=== PATIENT | female | born 1960 | race Caucasian/White ===

== ENCOUNTER → 2018-08-02 10:06 | Outpatient (CLI) | payer OTHER, SELFPAY ==
--- NOTE | 2018-08-02 | DI.RAD.S_ITS ---
PROCEDURE: XR CERVICAL SPINE 4V OR 5V INDICATIONS: PAIN IN NECK TECHNIQUE: 4 views of the cervical spine acquired. COMPARISON: None. FINDINGS: Bones: No fractures or dislocations to the C7-T1 level. Mild degenerative endplate changes are noted at C5-6 and C6-7 levels. Oblique images demonstrate no significant bony foraminal stenoses. Soft tissues: No prevertebral soft tissue swelling. IMPRESSION: Degenerative disc disease in lower cervical spine. No compression fracture or spondylolisthesis. No significant neural foramina narrowing. Dictated by: Mark Escobedo M.D. on 08/02/2018 at 11:38 Approved by: Mark Escobedo M.D. on 08/02/2018 at 11:40
--- NOTE | 2018-08-02 | DI.RAD.S_ITS ---
PROCEDURE: XR SHOULDER RT 1V INDICATIONS: PAIN IN SHOULDER TECHNIQUE: 3 views of the shoulder were acquired. COMPARISON: [facility], , SHOULDER MINIMUM 2VIEW RIGHT, 06/22/2017, 10:00. FINDINGS: Bones: No fractures or dislocations. No suspicious bony lesions. Visualized ribs appear intact. Mild acromioclavicular joint and glenohumeral joint space narrowing is seen. Soft tissues: No suspicious soft tissue calcifications. IMPRESSION: Mild acromioclavicular joint and glenohumeral joint osteoarthritis. No fracture or dislocation. Dictated by: Mark Escobedo M.D. on 08/02/2018 at 11:40 Approved by: Mark Escobedo M.D. on 08/02/2018 at 11:57
== END ==
PROVIDERS: Family Provider Family Medicine; PCP Family Medicine; Visit Provider Family Medicine
DX: M25.511 Pain in right shoulder (principal); M50.322 Other cervical disc degeneration at C5-C6 level; M19.011 Primary osteoarthritis, right shoulder
CPT/HCPCS: 72050; 73030

== ENCOUNTER → 2018-10-24 09:41 | Outpatient (CLI) | payer OTHER, SELFPAY ==
--- NOTE | 2018-10-24 | DI.US.S_ITS ---
PROCEDURE: US THYROID INDICATIONS: HYPOTHYROID, HIP AND BACK PAIN TECHNIQUE: Real-time scanning was performed of the thyroid gland, with image documentation. COMPARISON: None. FINDINGS: Right: Thyroid lobe measures 5.3 x 1.3 x 1.1 cm, and is homogeneous in echotexture. Left: Thyroid lobe measures 4.4 x 1.0 x 1.0 cm, and is homogenous in echotexture. Isthmus: 3.0 mm thick. IMPRESSION: Normal thyroid. Dictated by: Abel SANTAMARIA Interpreted: Vikas Zhong MD on 10/24/2018 at 14:18 Approved by: Vikas Zhong M.D. on 10/24/2018 at 14:47
--- NOTE | 2018-10-24 | DI.RAD.S_ITS ---
PROCEDURE: XR HIP W PEL IF DONE RT 2V INDICATIONS: HYPOTHYROID, HIP AND BACK PAIN TECHNIQUE: AP pelvis with lateral view(s) of the right hip(s). COMPARISON: [facility], , -SPINE 2-3 VIEWS, 02/21/2016, 10:05. FINDINGS: Bones: No fractures or dislocations. Pelvic ring appears intact. No suspicious bony lesions. There is mild measured a consideration. Moderate bilateral facet arthropathy is noted at L5-S1. Soft tissues: The visualized bowel gas pattern is normal. No suspicious soft tissue calcifications. IMPRESSION: 1. Mild symmetric hip joint osteoarthritis. 2. Moderate bilateral facet arthropathy. Dictated by: Be Gonzalez M.D. on 10/24/2018 at 15:53 Approved by: Be Gonzalez M.D. on 10/24/2018 at 15:57
--- NOTE | 2018-10-24 | DI.RAD.S_ITS ---
PROCEDURE: XR LUMBAR SPINE 2-3V INDICATIONS: HYPOTHYROID, HIP AND BACK PAIN TECHNIQUE: 2 views of the lumbar spine were acquired. COMPARISON: [facility], CR, L-SPINE 2-3 VIEWS, 02/21/2016, 10:05. [facility], MR, L-SPINE WITHOUT CONTRAST, 05/26/2016, 12:52. FINDINGS: Bones: 5 [id number] vertebrae are present. There is grade 1 anterolisthesis of L5-S1. No vertebral body compression fractures. No suspicious bony lesions. There is mild degenerative disease at L3-L4 and L4-L5. There is severe facet arthropathy at L4-L5 and L5-S1. Soft tissues: Overlying bowel gas pattern is normal. Aortic calcifications consistent with atherosclerosis. IMPRESSION: 1. Mild degenerative disc disease. 2. Severe facet arthropathy. Dictated by: Be Gonzalez M.D. on 10/24/2018 at 14:29 Approved by: Be Gonzalez M.D. on 10/24/2018 at 14:31
== END ==
PROVIDERS: Family Provider Family Medicine; PCP Family Medicine; Visit Provider Family Medicine
DX: M54.5 Low back pain (principal); E03.9 Hypothyroidism, unspecified; M25.551 Pain in right hip; M51.36 Other intervertebral disc degeneration, lumbar region; M47.816 Spondylosis without myelopathy or radiculopathy, lumbar region; M47.817 Spondylosis without myelopathy or radiculopathy, lumbosacral region; M16.11 Unilateral primary osteoarthritis, right hip
CPT/HCPCS: 72100; 73502; 76536

== ENCOUNTER → 2019-04-10 09:47 | Outpatient (CLI) | payer OTHER, SELFPAY ==
--- NOTE | 2019-04-10 | DI.MRI.S_ITS ---
PROCEDURE: MR LUMBAR SPINE WO CON INDICATIONS: Panniculitis affecting regions of neck and back, t TECHNIQUE: Noncontrast sagittal T1 spin echo and T2 fast echo, sagittal STIR, axial T1 and T2 fast spin echo through the lumbar spine. In cases with scoliosis, additional coronal T2 fast spin echo may be performed. COMPARISON: [facility], MR, L-SPINE WITHOUT CONTRAST, 05/26/2016, 12:52. FINDINGS: Image quality: Excellent. Alignment and Curvature: Trace anterolisthesis of L5 on S1 Bone Marrow: No acute fracture. Scattered degenerative subchondral sclerosis and spurring. Status post L4-L5 level posterior decompression Spinal Cord: Conus medullaris terminates at the L1 level. Visualized cord demonstrates normal signal and size. Paraspinous Soft Tissues: No paravertebral masses. There is nonspecific, dependent posterior subcutaneous soft tissue edema from level of L1-L3 L1-L2: Normal appearance. L2-L3: Moderate canal narrowing in part due to dorsal epidural lipomatosis. This appears grossly unchanged. L3-L4: No canal stenosis. Lateral recesses appear patent. No high-grade foraminal stenosis. No interval change. L4-L5: No canal stenosis. No lateral recess narrowing. Minimal bilateral foraminal narrowing although unchanged. L5-S1: No canal or foraminal stenosis. IMPRESSION: Status post posterior decompression at L4-L5. No residual high-grade canal stenosis. Trace anterolisthesis of L5 on S1. Dictated by: Hank Storey M.D. on 04/10/2019 at 13:44 Approved by: Hank Storey M.D. on 04/10/2019 at 13:51
== END ==
PROVIDERS: Family Provider Family Medicine; PCP Family Medicine; Visit Provider Orthopaedic Surgery Orthopaedic Surgery of the Spine
DX: M54.05 Panniculitis affecting regions of neck and back, thoracolumbar region (principal)
CPT/HCPCS: 72148

== ENCOUNTER → 2019-05-25 16:24 | Outpatient (CLI) | payer OTHER, SELFPAY ==
--- NOTE | 2019-05-25 | DI.RAD.S_ITS ---
PROCEDURE: XR KNEE LT 3V INDICATIONS: left knee pain TECHNIQUE: 3 views of the knee were acquired. COMPARISON: [facility], MR, KNEE WITHOUT CONTRAST, 11/23/2017, 9:58. [facility], MR, KNEE WITHOUT CONTRAST, 05/13/2015, 17:39. [facility], CR, KNEE 3V LEFT, 10/19/2017, 10:39. FINDINGS: Bones: No fractures or dislocations. No suspicious bony lesions. The femorotibial joint spaces appear well-preserved. On the sunrise view, there is moderate patellofemoral joint space narrowing seen. Osteophyte formation can be seen along the margins of the patella. Soft tissues: No joint effusion. No suspicious soft tissue calcifications. Atherosclerotic calcification is noted. IMPRESSION: Focal patellofemoral joint degenerative change. Dictated by: Pro Braswell M.D. on 05/25/2019 at 16:11 Approved by: Pro Braswell M.D. on 05/25/2019 at 16:12
== END ==
PROVIDERS: PCP Family Medicine; Visit Provider Family Medicine
DX: M25.562 Pain in left knee (principal); M25.762 Osteophyte, left knee
CPT/HCPCS: 73562

== ENCOUNTER → 2019-06-16 16:38 | Outpatient (CLI) | payer OTHER, SELFPAY ==
--- NOTE | 2019-06-16 | DI.RAD.S_ITS ---
PROCEDURE: XR THORACIC SPINE 3V INDICATIONS: Pain in thoracic spine TECHNIQUE: 3 views of the thoracic spine were acquired. COMPARISON: [facility], MR, T-SPINE WITHOUT CONTRAST, 12/26/2016, 18:20. [facility], CR, XR LUMBAR SPINE 2-3V, 10/24/2018, 9:54. FINDINGS: Bones: No fractures or dislocations. No suspicious bony lesions. 12 pairs of ribs are noted, and appear intact where visualized. Mild degenerative disc disease scattered in upper to mid thoracic spine.. Soft tissues: No paravertebral stripe thickening. IMPRESSION: Mild degenerative disc disease. Dictated by: Be Gonzalez M.D. on 06/16/2019 at 18:33 Approved by: Be Gonzalez M.D. on 06/16/2019 at 18:35
== END ==
PROVIDERS: PCP Family Medicine; Visit Provider Family Medicine
DX: M51.34 Other intervertebral disc degeneration, thoracic region (principal)
CPT/HCPCS: 72072

== ENCOUNTER → 2019-06-19 12:11 | Outpatient (CLI) | payer OTHER, SELFPAY ==
--- NOTE | 2019-06-19 | DI.RAD.S_ITS ---
PROCEDURE: XR LUMBAR SPINE MIN 4V INDICATIONS: Spinal stenosis, lumbar region without neurogenic TECHNIQUE: 5 views of the lumbar spine acquired. COMPARISON: [facility], CR, XR LUMBAR SPINE 2-3V, 10/24/2018, 9:54. FINDINGS: Bones: No fracture or focal osseous destruction. Multilevel degenerative endplate sclerosis and spurring. Diffuse facet arthropathy. Grade 1 anterolisthesis of L4 on L5. Moderate to severe narrowing of the L5-S1 disc space. Diffuse mild narrowing of the remaining lumbar disc spaces. No evidence of abnormal motion with dynamic flexion and extension lateral views. Soft tissues: Scattered vascular calcifications seen in the aorta. IMPRESSION: Multilevel lumbar spondylosis, most pronounced at L5-S1. No interval change Grade 1 anterolisthesis of L4-L5. No evidence of abnormal motion with dynamic flexion and extension lateral views. Dictated by: Hank Storey M.D. on 06/19/2019 at 17:08 Approved by: Hank Storey M.D. on 06/19/2019 at 17:11
== END ==
PROVIDERS: PCP Family Medicine; Visit Provider Orthopaedic Surgery Orthopaedic Surgery of the Spine
DX: M48.061 Spinal stenosis, lumbar region without neurogenic claudication (principal); M47.817 Spondylosis without myelopathy or radiculopathy, lumbosacral region; M43.16 Spondylolisthesis, lumbar region
CPT/HCPCS: 72110

== ENCOUNTER → 2020-08-21 09:23 | Outpatient (CLI) | payer OTHER, SELFPAY ==
[2020-08-21 10:52] LABS: COVID19 -Nasal RAPID Negative (Negative)
== END ==
PROVIDERS: PCP Family Medicine; Visit Provider Nurse Practitioner
DX: H92.09 Otalgia, unspecified ear (principal); J02.9 Acute pharyngitis, unspecified; J98.8 Other specified respiratory disorders; R05 Cough
CPT/HCPCS: 87635

== ENCOUNTER → 2020-11-21 16:01 | Outpatient (CLI) | payer OTHER, SELFPAY ==
--- NOTE | 2020-11-21 16:03 | DI.RAD.S_ITS ---
PROCEDURE: XR CERVICAL SPINE 2V OR 3V INDICATIONS: M54.5, M54.2 TECHNIQUE: 3 view(s) of the cervical spine were acquired. COMPARISON: [facility], CR, XR CERVICAL SPINE 4V OR 5V, 08/02/2018, 10:29. FINDINGS: Bones: No fracture. Multilevel degenerative endplate sclerosis and spurring. Diffuse facet arthropathy. Joint spaces grossly preserved. Soft tissues: No prevertebral soft tissue swelling. IMPRESSION: Mild cervical spondylitic changes and diffuse facet arthropathy. No interval change Dictated by: Hank Storey M.D. on 11/21/2020 at 22:11 Approved by: Hank Storey M.D. on 11/21/2020 at 22:12
--- NOTE | 2020-11-21 16:03 | DI.RAD.S_ITS ---
PROCEDURE: XR THORACIC SPINE 2V INDICATIONS: A TECHNIQUE: 3 views of the thoracic spine were acquired. COMPARISON: [facility], CR, XR THORACIC SPINE 3V, 06/16/2019, 16:42. FINDINGS: Bones: No fracture. Multilevel degenerative endplate sclerosis and spurring. Diffuse facet arthropathy. Disc spaces preserved Soft tissues: No paravertebral stripe thickening. IMPRESSION: Mild discogenic changes. No interval change Dictated by: Hank Storey M.D. on 11/21/2020 at 22:14 Approved by: Hank Storey M.D. on 11/21/2020 at 22:15
--- NOTE | 2020-11-21 16:03 | DI.RAD.S_ITS ---
PROCEDURE: XR LUMBAR SPINE 2-3V INDICATIONS: M54.5, M54.2 TECHNIQUE: 3 views of the lumbar spine were acquired. COMPARISON: [facility], , XR LUMBAR SPINE MIN 4V, 06/19/2019, 12:56. FINDINGS: Bones: No fracture Multilevel degenerative endplate sclerosis and spurring. Diffuse facet arthropathy. Mild right hip degenerative joint disease. Trace anterolisthesis of L4 on L5 and grade 1 anterolisthesis of L5 on S1. Soft tissues: Scattered vascular calcifications in the aorta IMPRESSION: Lower lumbar spondylosis and diffuse facet arthropathy, grossly unchanged since 06/19/19 Dictated by: Hank Storey M.D. on 11/21/2020 at 22:12 Approved by: Hank Storey M.D. on 11/21/2020 at 22:13
== END ==
PROVIDERS: PCP Family Medicine; Referring Provider Family Medicine; Visit Provider Family Medicine
DX: M54.2 Cervicalgia (principal); M47.812 Spondylosis without myelopathy or radiculopathy, cervical region; M54.5 Low back pain; M47.816 Spondylosis without myelopathy or radiculopathy, lumbar region; M16.0 Bilateral primary osteoarthritis of hip; M43.17 Spondylolisthesis, lumbosacral region
CPT/HCPCS: 72040; 72070; 72100

== ENCOUNTER → 2021-03-13 14:30 | Outpatient (CLI) | payer OTHER, SELFPAY ==
--- NOTE | 2021-03-13 14:32 | DI.RAD.S_ITS ---
PROCEDURE: XR ANKLE LT MIN 3V INDICATIONS: PAIN TECHNIQUE: 3 views of the ankle were acquired. COMPARISON: None. FINDINGS: Bones: No fractures or dislocations. Ankle mortise is normally aligned. No suspicious bony lesions. Age-appropriate bony degenerative changes are seen. Plantar and Achilles calcaneal spurs are seen. The talar dome demonstrates no erasmo abnormality. Soft tissues: No tibiotalar joint effusion. Achilles tendon appears normal. IMPRESSION: Ankle plain film series within normal limits. Dictated by: Pro Braswell M.D. on 03/13/2021 at 14:22 Approved by: Pro Braswell M.D. on 03/13/2021 at 14:22
== END ==
PROVIDERS: PCP Family Medicine; Referring Provider Family Medicine; Visit Provider Family Medicine
DX: M25.572 Pain in left ankle and joints of left foot (principal); M77.32 Calcaneal spur, left foot
CPT/HCPCS: 73610

== ENCOUNTER → 2021-04-23 10:10 | Outpatient (CLI) | payer OTHER, SELFPAY ==
--- NOTE | 2021-04-23 | DI.MRI.S_ITS ---
PROCEDURE: MR LUMBAR SPINE WO CON INDICATIONS: Spinal stenosis, lumbar region without neurogenic TECHNIQUE: Noncontrast sagittal T1 spin echo and T2 fast echo, sagittal STIR, axial T1 and T2 fast spin echo through the lumbar spine. In cases with scoliosis, additional coronal T2 fast spin echo may be performed. COMPARISON: [facility], CT, L-SPINE WITHOUT CONTRAST, 07/27/2016, 13:02. [facility], MR, MR LUMBAR SPINE WO CON, 04/10/2019, 10:09. [facility], CR, XR LUMBAR SPINE 2-3V, 11/21/2020, 16:09. FINDINGS: Image quality: Excellent. Alignment and Curvature: Remote L4 through S1 laminectomy. Stable anterolisthesis of L5 on S1 measuring approximately 6 mm. The other vertebral bodies are normally aligned. Bone Marrow: Marrow is of normal overall signal. No acute vertebral body compression fractures. Spinal Cord: Conus medullaris terminates at the L1 level. Visualized cord demonstrates normal signal and size. Paraspinous Soft Tissues: No paravertebral masses. T11-T12: No canal stenosis or foraminal stenosis. T12-L1: No canal stenosis or foraminal stenosis. L1-L2: No canal stenosis or foraminal stenosis. L2-L3: Interval increase in diffuse disc bulge, slightly eccentric to the right. Mild facet hypertrophy. Mild canal stenosis. No significant foraminal stenosis. L3-L4: Unchanged. Disc bulge. Posterior laminectomy. No canal stenosis. Bilateral facet hypertrophy. No foraminal stenosis. L4-L5: Unchanged. Posterior laminectomy. No canal stenosis. Bilateral facet hypertrophy. Mild right foraminal narrowing. L5-S1: Facet hypertrophy. Posterior laminectomy. Mild canal stenosis. IMPRESSION: 1. Remote L4 through S1 laminectomy. 2. Mild canal stenosis at L2-L3. 3. Mild canal stenosis at L5-S1. This is best seen on the sagittal images. 4. Multilevel facet arthropathy. Dictated by: Gee Doyle M.D. on 04/23/2021 at 21:00 Approved by: Gee Doyle M.D. on 04/23/2021 at 21:11
== END ==
PROVIDERS: PCP Family Medicine; Referring Provider Orthopaedic Surgery Orthopaedic Surgery of the Spine; Visit Provider Orthopaedic Surgery Orthopaedic Surgery of the Spine
DX: M48.061 Spinal stenosis, lumbar region without neurogenic claudication (principal); M47.816 Spondylosis without myelopathy or radiculopathy, lumbar region
CPT/HCPCS: 72148

== ENCOUNTER → 2021-08-03 16:51 | Outpatient (CLI) | payer OTHER, SELFPAY ==
--- NOTE | 2021-08-03 | DI.RAD.S_ITS ---
PROCEDURE: XR KNEE LT 3V INDICATIONS: pain TECHNIQUE: 3 views of the knee were acquired. COMPARISON: [facility], CR, XR KNEE LT 3V, 05/25/2019, 16:34. FINDINGS: Bones: No fractures or dislocations. No suspicious bony lesions. Superior patellar enthesophyte. Minimal tricompartmental osteophytosis. Soft tissues: No joint effusion. No suspicious soft tissue calcifications. IMPRESSION: No significant abnormality. Dictated by: Charlie Hernandez M.D. on 08/04/2021 at 9:46 Approved by: Charlie Hernandez M.D. on 08/04/2021 at 9:49
== END ==
PROVIDERS: PCP Family Medicine; Referring Provider Family Medicine; Visit Provider Family Medicine
DX: M25.562 Pain in left knee (principal)
CPT/HCPCS: 73562

== ENCOUNTER → 2021-08-10 11:45 | Outpatient (CLI) | payer OTHER, SELFPAY ==
--- NOTE | 2021-08-10 11:46 | DI.MRI.S_ITS ---
PROCEDURE: MR KNEE LT WO CON INDICATIONS: CHECK FOR MINISCUS TECHNIQUE: Noncontrast sagittal PD fast spin echo and T2 fast spin echo with fat saturation, sagittal 3-D FLASH with fat saturation; coronal T1 spin echo and PD fast spin echo with fat saturation, and axial PD fast spin echo with fat saturation through the knee. COMPARISON: [facility], MR, KNEE WITHOUT CONTRAST, 11/23/2017, 9:58. FINDINGS: Image quality: Excellent. Menisci: The lateral meniscus is intact. Surfacing signal in the posterior horn, medial meniscus, compatible with meniscal tear (7-10). Mild extrusion of the medial meniscus. The meniscal root ligaments appear intact. Cruciate ligaments: The anterior and posterior cruciate ligaments appear intact. Medial structures: The medial collateral ligament appears intact. The visualized portions of the pes anserinus tendons appear normal. No abnormal bursal fluid. Lateral structures: The lateral collateral ligament complex appears intact. The popliteus tendon appears normal. The iliotibial band appears normal. Anterior structures: The quadriceps and patellar tendons appear intact. Patellar alignment is normal. No femoral trochlear dysplasia or ventral trochlear prominence. No edema in the infrapatellar fat pad. Bones and cartilage: No bone marrow contusions or fractures. Signal heterogeneity of the lateral patellar facet hyaline cartilage with preservation of the thickness. Signal heterogeneity with slight contour irregularity of the medial femoral condyle hyaline cartilage. Signal heterogeneity and thinning of the lateral compartment hyaline cartilage. Joint space: Small knee joint fluid. Trace Freeman's cyst. IMPRESSION: 1. Medial meniscal tear as detailed above. 2. Lateral patellar facet chondromalacia. 3. Small suprapatellar joint effusion. Dictated by: Charlie Hernandez M.D. on 08/10/2021 at 13:17 Approved by: Charlie Hernandez M.D. on 08/10/2021 at 13:22
== END ==
PROVIDERS: PCP Family Medicine; Referring Provider Family Medicine; Visit Provider Family Medicine
DX: S83.242A Other tear of medial meniscus, current injury, left knee, initial encounter (principal); M22.42 Chondromalacia patellae, left knee; M25.462 Effusion, left knee; M25.562 Pain in left knee
CPT/HCPCS: 73721

== ENCOUNTER → 2021-12-02 10:44 | Outpatient (CLI) | payer OTHER, SELFPAY ==
--- NOTE | 2021-12-02 10:48 | DI.MG.S_ITS ---
BILATERAL DIGITAL SCREENING MAMMOGRAM 3D/2D WITH CAD: 12/02/2021 CLINICAL: Routine screening. Comparison is made to exams dated: 10/07/2018 mammogram, 06/20/2016 mammogram, 11/03/2015 mammogram, 11/03/2015 ultrasound, and 10/28/2015 mammogram - outside. There are scattered fibroglandular elements in both breasts. Current study was also evaluated with a Computer Aided Detection (CAD) system. There is a possible new 0.5 cm irregular equal density asymmetry in the right breast posterior depth lateral region seen on the craniocaudal view only. No other significant masses, calcifications, or other findings are seen in either breast. IMPRESSION: INCOMPLETE: NEEDS ADDITIONAL IMAGING EVALUATION The possible new 0.5 cm irregular equal density asymmetry in the right breast is indeterminate. Additional views with possible ultrasound are recommended. This exam was interpreted at Station ID: [id number]. NOTE: For mammograms, a report in lay terms will be sent to the patient. Approximately 15% of breast malignancies will not be visualized mammographically. In the management of a palpable breast mass, a negative mammogram must not discourage biopsy of a clinically suspicious lesion. Electronically Signed By: Vikas ocampo/max:12/02/2021 13:17:34 letter sent: Additional Imaging Needed ACR BI-RADS Category 0: Incomplete [id number]
== END ==
PROVIDERS: PCP Family Medicine; Referring Provider Family Medicine; Visit Provider Family Medicine
DX: Z12.31 Encounter for screening mammogram for malignant neoplasm of breast (principal)
CPT/HCPCS: 77063; 77067

== ENCOUNTER → 2022-01-20 12:05 | Outpatient (CLI) | payer OTHER, SELFPAY ==
--- NOTE | 2022-01-20 | DI.MG.S_ITS ---
UNILATERAL RIGHT DIGITAL DIAGNOSTIC MAMMOGRAM 3D/2D WITH ADDITIONAL VIEWS: 01/20/2022 CLINICAL: Additional evaluation requested from prior study. Comparison is made to exams dated: 12/02/2021 mammogram - [facility], 10/07/2018 mammogram, and 06/20/2016 mammogram - outside. There are scattered fibroglandular elements in right breast. The 0.5 cm irregular equal density asymmetry in the right breast posterior depth central to the nipple seen on the craniocaudal view only is no longer seen. This is seen in additional views. No other significant masses or calcifications are seen in the breast. IMPRESSION: INCOMPLETE: NEEDS ADDITIONAL IMAGING EVALUATION Asymmetry in the right breast is not significantly changed from recent screening mammogram, and appears new when compared with 2019 study. An ultrasound is recommended and has been scheduled to immediately follow. This exam was interpreted at Station ID: [id number]. NOTE: For mammograms, a report in lay terms will be sent to the patient. Approximately 15% of breast malignancies will not be visualized mammographically. In the management of a palpable breast mass, a negative mammogram must not discourage biopsy of a clinically suspicious lesion. Electronically Signed By: Kemar Jim M.D. jr/:01/20/2022 12:40:29 ACR BI-RADS Category 0: Incomplete [id number]
--- NOTE | 2022-01-20 | DI.US.S_ITS ---
LIMITED ULTRASOUND OF RIGHT BREAST: 01/20/2022 CLINICAL: Patient returns today to evaluate an asymmetry in the right breast. Comparison is made to exams dated: 01/20/2022 mammogram, 12/02/2021 mammogram - [facility], 10/07/2018 mammogram, 06/20/2016 mammogram, 11/03/2015 mammogram, and 11/03/2015 ultrasound - outside. Color flow and real-time ultrasound of the right breast were performed. Anaya scale images of the real-time examination were reviewed. Asymmetry seen mammographically has no sonographic correlate. No shadowing mass demonstrated. IMPRESSION: PROBABLY BENIGN The 0.5 cm asymmetry in the right breast is seen mammographically only, and only on one view. This is favored to represent fibroglandular tissue. A follow-up mammogram in 6 months is recommended to demonstrate stability. This exam was interpreted at Station ID: [id number]. Electronically Signed By: Kemar Jim M.D. jr/:01/20/2022 13:55:47 letter sent: Followup Recommended Ultrasound BI-RADS: 3 Probably benign
== END ==
PROVIDERS: PCP Family Medicine; Referring Provider Family Medicine; Visit Provider Family Medicine
DX: R92.8 Other abnormal and inconclusive findings on diagnostic imaging of breast (principal); N64.89 Other specified disorders of breast
CPT/HCPCS: 76642; 77065; G0279

== ENCOUNTER → 2022-02-03 11:26 | Outpatient (CLI) | payer OTHER, SELFPAY ==
--- NOTE | 2022-02-03 | DI.RAD.S_ITS ---
PROCEDURE: XR KNEE RT 3V INDICATIONS: RIGHT KNEE PAIN TECHNIQUE: 3 views of the knee were acquired. COMPARISON: [facility], CR, XR KNEE LT 3V, 08/03/2021, 16:46. FINDINGS: Bones: No fractures or dislocations. No suspicious bony lesions. Moderate medial and patellofemoral compartment narrowing. No erosions or periarticular osteophytes. Overall appearance is stable. Soft tissues: No joint effusion. No suspicious soft tissue calcifications. IMPRESSION: Stable arthritic change within the knee most notable in the medial compartment. Dictated by: Negra Miguel M.D. on 02/03/2022 at 17:33 Approved by: Negra Miguel M.D. on 02/03/2022 at 17:33
== END ==
PROVIDERS: PCP Family Medicine; Referring Provider Family Medicine; Visit Provider Family Medicine
DX: M25.561 Pain in right knee (principal)
CPT/HCPCS: 73562

== ENCOUNTER 2022-06-20 14:14 | Emergency (ER) | payer OTHER, SELFPAY ==
[2022-06-20 14:22] VITALS: PULSE 102; RESP 22; TEMP 36.8; O2SAT 99
[2022-06-20 14:24] VITALS: BP 145/74
[2022-06-20 14:43] LABS: Add Manual Diff / Slide Review NO; Basophils Absolute Auto 200 /uL (0-100); Basophils Percent Auto 1.5 % (0-2); Eosinophils Absolute Auto 200 /uL (0-450); Eosinophils Percent Auto 2.2 % (2-4); Hematocrit 38.7 % (36-46); Hemoglobin 12.9 g/dL (12.0-16.0); Lymphocytes Absolute Auto 2900 /uL (1100-4500); Lymphocytes Percent Auto 26.3 % (25-40); Mean Corpuscular HGB Conc 33.3 % (30-36); Mean Corpuscular Hemoglobin 26.5 PG (26-34); Mean Corpuscular Volume 79.6 fL (80-100); Monocytes Absolute Auto 900 /uL (0-900); Neutrophils Absolute Auto 6800 /uL (1500-7000); Platelet Count 336 X10^3/uL (150-400); Red Blood Cell Count 4.86 X10^6/uL (4.0-5.2); Red Cell Distribution Width 14.7 % (11.6-14.8)
[2022-06-20 14:56] LABS: Alanine Aminotransferase 35 IU/L (<35); Albumin 4.2 g/dL (3.5-5.0); Albumin Globulin Ratio 1.3 (1.0-2.8); Alkaline Phosphatase 126 U/L (38-126); Aspartate Aminotransferase 32 IU/L (14-36); Bilirubin Total 0.5 mg/dL (0.2-1.3); Blood Urea Nitrogen 12 mg/dL (7-17); Calcium 9.1 mg/dL (8.4-10.2); Carbon Dioxide 28 mmol/L (22-32); Chloride 102 mmol/L (98-107); Estimated Glomerular Filt Rate > 60 mL/min (>60); Globulin 3.2 g/dL (1.7-4.1); Glucose 142 mg/dL (80-110); HEMOLYSIS < 15 (0-50); Lipase 44 U/L (23-300); Potassium 3.8 mmol/L (3.4-5.1); Sodium 139 mmol/L (137-145); Total Protein 7.4 g/dL (6.3-8.2)
[2022-06-20 17:27] VITALS: PULSE 92; O2SAT 91
[2022-06-20 17:30] VITALS: BP 135/66; PULSE 91; O2SAT 99
--- NOTE | 2022-06-20 17:40 | ED.GIBLEED ---
HPI - GI Bleed General Chief complaint: GI Bleed Stated complaint: black stools since this morning Time Seen by Provider: 06/20/22 17:33 Source: patient Mode of arrival: Ambulatory History of Present Illness HPI Narrative: Patient is a 62-year-old female. History of reflux disease. Is on Nexium. This morning started to have diarrhea. She stated that the stool then did turn a black color. She is not on anticoagulation. No urinary symptoms. No vaginal bleeding. No prior abdominal surgeries. Has had a colonoscopy and upper endoscopy in the past. This were a couple years ago. She stated that she had ulcers on her upper endoscopy but her colonoscopy was unremarkable. She does not take any anti-inflammatories. She has very mild generalized abdominal tenderness. She did bring a stool sample in with her. Related Data Home Medications Medication Instructions Recorded Confirmed atorvastatin 40 mg tablet 40 mg PO HS ##0 10/29/17 10/06/20 metoprolol tartrate 25 mg tablet 25 mg PO QDAY ##0 10/29/17 10/06/20 esomeprazole magnesium 40 mg 40 mg PO DAILY 11/08/18 10/06/20 capsule,delayed release cholecalciferol (vitamin D3) 50 50 mcg PO DAILY 02/26/20 10/06/20 mcg (2,000 unit) tablet Allergies Allergy/AdvReac Type Severity Reaction Status Date / Time No Known Drug Allergies Allergy Verified 10/06/20 08:39 Review of Systems Constitutional Constitutional: Reports system reviewed and no additional complaints, except as documented Cardiovascular Cardiovascular: Reports system reviewed and no additional complaints, except as documented Respiratory Respiratory: Reports system reviewed and no additional complaints, except as documented Gastrointestinal Gastrointestinal: Reports system reviewed and no additional complaints, except as documented Genitourinary Genitourinary: Reports system reviewed and no additional complaints, except as documented Integumentary/Breasts Skin/Breast: Reports system reviewed and no additional complaints, except as documented Hematologic/Lymphatic On Anticoagulants: No Patient History Medical History Hypertension Lipid disorder Postmenopausal bleeding Surgical History (Updated 10/06/20 @ 09:14 by Felicia Peng MD) History of section Status post laminectomy Family History Father Diabetes mellitus Heart disease Stroke Sister Diabetes mellitus Kidney failure Social History Smoking Status: Former smoker Smoking Status: Former smoker Exam Initial Vital Signs Initial Vital Signs: Vital Signs Temperature 98.2 F 06/20/22 14:22 Pulse Rate 102 H 06/20/22 14:22 Respiratory Rate 22 06/20/22 14:22 Pulse Oximetry 99 06/20/22 14:22 Oxygen Delivery Method 06/20/22 14:22 HENMT Head: normal to inspection and normocephalic Resp Effort & Inspection: normal respiratory effort Cardio Rate: regular rate GI Inspection: normal to inspection and non-distended Palpation: No firm and No guarding Rectal Exam: heme negative stool Skin General: no rashes or lesions noted Extrem General: normal to inspection and capillary refill normal Course Orders Ordered: ED Orders 06/20/22 14:23 Complete Blood Count AUTO DIFF Stat Comprehensive Metabolic Panel Stat Lipase Stat 06/20/22 14:25 EKG-12 Lead Stat Discontinued Medications Ondansetron HCl (Ondansetron 4 Mg Odt) 4 mg PO NOW ONE Stop: 06/20/22 14:26 Ondansetron HCl (Ondansetron 4 Mg/2 Ml Inj) 4 mg IV NOW ONE Stop: 06/20/22 14:26 Vital Signs Vital signs: Vital Signs - 8 hr 06/20/22 14:22 06/20/22 14:24 06/20/22 17:27 Temperature 98.2 F Pulse Rate 102 H 92 H Respiratory Rate 22 Blood Pressure 145/74 H Pulse Oximetry 99 91 Oxygen Delivery Method Room Air 06/20/22 17:30 06/20/22 17:30 Temperature Pulse Rate 91 H Respiratory Rate Blood Pressure 135/66 Pulse Oximetry 99 Oxygen Delivery Method MDM - GI Bleed Lab Data Attestation: I reviewed the patient's lab results. Result diagrams: 06/20/22 14:23 06/20/22 14:23 Labs: Lab Results 06/20/22 06/20/22 Range/Units 14:23 14:23 WBC 11.0 (4.5-11.0) X10^3/uL RBC 4.86 (4.0-5.2) X10^6/uL Hgb 12.9 (12.0-16.0) g/dL Hct 38.7 (36-46) % MCV 79.6 L (80-100) fL MCH 26.5 (26-34) PG MCHC 33.3 (30-36) % RDW 14.7 (11.6-14.8) % Plt Count 336 (150-400) X10^3/uL Neut % (Auto) 62.0 (50-75) % Lymph % (Auto) 26.3 (25-40) % Marinette % (Auto) 8.0 (3-14) % Eos % (Auto) 2.2 (2-4) % Baso % (Auto) 1.5 (0-2) % Neut # (Auto) 6800 (0520-3387) /uL Lymph # (Auto) 2900 (9062-9838) /uL Marinette # (Auto) 900 (0-900) /uL Eos # (Auto) 200 (0-450) /uL Baso # (Auto) 200 H (0-100) /uL Sodium 139 (137-145) mmol/L Potassium 3.8 (3.4-5.1) mmol/L Chloride 102 (98-107) mmol/L Carbon Dioxide 28 (22-32) mmol/L BUN 12 (7-17) mg/dL Creatinine 0.48 L (0.52-1.04) mg/dL Estimated GFR > 60 (>60) mL/min BUN/Creatinine Ratio 25.0 H (6-22) Glucose 142 H (80-110) mg/dL Calcium 9.1 (8.4-10.2) mg/dL Total Bilirubin 0.5 (0.2-1.3) mg/dL AST 32 (14-36) IU/L ALT 35 H (<35) IU/L Alkaline Phosphatase 126 (38-126) U/L Total Protein 7.4 (6.3-8.2) g/dL Albumin 4.2 (3.5-5.0) g/dL Globulin 3.2 (1.7-4.1) g/dL Albumin/Globulin Ratio 1.3 (1.0-2.8) Lipase 44 (23-300) U/L [facility] Narrative Medical decision making narrative: Hemoccult was performed on the stool sample that she brought in and was Hemoccult negative. I feel that we can hold on any radiologic studies for now she does have a very benign abdominal exam. She is afebrile. Not anemic. She would also like to hold on further workup for now. She will continue with her Nexium. She was given return precautions and follow-up instructions. She expressed understanding and agreement. Discharge Plan Departure Patient Disposition: Home Clinical Impression: Diarrhea Instructions: Diarrhea Activity Restrictions/Additional Instructions: Continue to take all of your medications as directed. Be sure to increase your fluid intake. Return to the emergency department for any new or worsening symptoms. Prescriptions: No Action atorvastatin 40 MG tablet 40 mg PO HS Qty: 0 metoprolol tartrate 25 MG tablet 25 mg PO QDAY Qty: 0 esomeprazole magnesium 40 mg capsule,delayed release(DR/EC) 40 mg PO DAILY cholecalciferol (vitamin D3) 50 mcg (2,000 unit) tablet 50 mcg PO DAILY Referrals: Leon Garner MD [Primary Care Provider] - Visit Report Forms: Patient Portal/API
== END 2022-06-20 17:50 | disposition home or self-care (01) ==
PROVIDERS: Emergency Provider Emergency Medicine; PCP Family Medicine
DX: R19.7 Diarrhea, unspecified (principal)
CPT/HCPCS: 36415; 80053; 83690; 85025; 99283

== ENCOUNTER → 2022-07-25 09:34 | Outpatient (CLI) | payer OTHER, SELFPAY ==
--- NOTE | 2022-07-25 | DI.MG.S_ITS ---
UNILATERAL RIGHT DIGITAL DIAGNOSTIC MAMMOGRAM 3D/2D SHORT-TERM FOLLOW-UP: 07/25/2022 CLINICAL: Short term follow up of the right breast. Comparison is made to exams dated: 01/20/2022 ultrasound, 01/20/2022 mammogram, 12/02/2021 mammogram - [facility], and 10/07/2018 mammogram - outside. There are scattered areas of fibroglandular density in the right breast (category b / 25%-50% glandular tissue). The previously described 0.5 cm irregular equal density asymmetry in the right breast posterior depth central to the nipple seen on the craniocaudal view only is less prominent and was not seen on the prior ultrasound. No other significant masses or calcifications are seen in the breast. IMPRESSION: PROBABLY BENIGN The 0.5 cm irregular equal density asymmetry in the right breast most likely is fibroglandular tissue and is probably benign. A follow-up bilateral mammogram with possible right ultrasound in 6 months is recommended to demonstrate stability. Findings and recommendations were conveyed to the patient during today's evaluation. Based on the Tyrer Cuzick model (a risk assessment model) the patient's lifetime risk is 6.3% and her 10 year risk is 2.6%. According to the ACR, ACS, and NCCN guidelines, an annual breast MRI exam along with mammogram is recommended if the patient's lifetime risk is 20% or greater. This exam was interpreted at Station ID: [id number]. NOTE: For mammograms, a report in lay terms will be sent to the patient. Approximately 15% of breast malignancies will not be visualized mammographically. In the management of a palpable breast mass, a negative mammogram must not discourage biopsy of a clinically suspicious lesion. Electronically Signed By: Vikas Zhong M.D. aty/:07/25/2022 11:03:56 letter sent: Followup Recommended ACR BI-RADS Category 3: Probably benign [id number]
== END ==
PROVIDERS: PCP Family Medicine; Referring Provider Family Medicine; Visit Provider Family Medicine
DX: R92.8 Other abnormal and inconclusive findings on diagnostic imaging of breast (principal); N64.89 Other specified disorders of breast
CPT/HCPCS: 77065; G0279

== ENCOUNTER → 2023-01-16 09:55 | Outpatient (CLI) | payer OTHER, SELFPAY ==
--- NOTE | 2023-01-16 | DI.MG.S_ITS ---
BILATERAL DIGITAL DIAGNOSTIC MAMMOGRAM 3D/2D: 01/16/2023 CLINICAL: Short term follow up, due bilateral. Comparison is made to exams dated: 07/25/2022 mammogram, 01/20/2022 mammogram, 12/02/2021 mammogram - [facility], and 10/07/2018 mammogram - outside. There are scattered areas of fibroglandular density in both breasts (category b / 25%-50% glandular tissue). There is an asymmetry in the right breast posterior depth central to the nipple seen on the craniocaudal view only. This is not significantly changed and was not seen on the prior ultrasound. No other significant masses, calcifications, or other findings are seen in either breast. IMPRESSION: PROBABLY BENIGN The asymmetry in the right breast most likely is fibroglandular tissue and is probably benign. A follow-up mammogram in 12 months is recommended to demonstrate long-term stability. Exam findings were conveyed to the patient. Based on the Tyrer Cuzick model (a risk assessment model) the patient's lifetime risk is 6.3% and her 10 year risk is 2.6%. According to the ACR, ACS, and NCCN guidelines, an annual breast MRI exam along with mammogram is recommended if the patient's lifetime risk is 20% or greater. This exam was interpreted at Station ID: [id number]. NOTE: For mammograms, a report in lay terms will be sent to the patient. Approximately 15% of breast malignancies will not be visualized mammographically. In the management of a palpable breast mass, a negative mammogram must not discourage biopsy of a clinically suspicious lesion. Electronically Signed By: Hollis Kinney M.D. [facility] [place]/:01/16/2023 10:34:02 letter sent: Followup Recommended ACR BI-RADS Category 3: Probably benign [id number]
== END ==
PROVIDERS: PCP Family Medicine; Referring Provider Family Medicine; Visit Provider Family Medicine
DX: R92.8 Other abnormal and inconclusive findings on diagnostic imaging of breast (principal); N64.89 Other specified disorders of breast
CPT/HCPCS: 77066; G0279

== ENCOUNTER → 2023-03-31 11:08 | Outpatient (CLI) | payer OTHER, SELFPAY ==
--- NOTE | 2023-03-31 | DI.RAD.S_ITS ---
PROCEDURE: XR LUMBAR SPINE 2-3V INDICATIONS: LOW BACK PAIN TECHNIQUE: 3 views of the lumbar spine were acquired. COMPARISON: [facility], CT, L-SPINE WITHOUT CONTRAST, 07/27/2016, 13:02. [facility], CR, XR LUMBAR SPINE MIN 4V, 06/19/2019, 12:56. [facility], CR, XR LUMBAR SPINE 2-3V, 11/21/2020, 16:09. FINDINGS: Bones: 5 nonrib-bearing, lumbar type vertebral bodies are seen. Grade 1 anterolisthesis can be seen at L4-L5 and L5-S1. Postoperative changes are seen, with removal of portions of the posterior elements. Bone grafting material is noted inferiorly. There is at least moderate disc space narrowing seen at L5-S1. Mild disc space narrowing can be seen at L2-L3. The disc heights otherwise appear well-preserved. Lower lumbar spine facet arthropathy is seen. Soft tissues: Overlying bowel gas pattern is normal. No suspicious soft tissue calcifications. Atherosclerotic calcification is noted. IMPRESSION: Lumbar spine degenerative changes are seen, which are worst at the L5-S1 level. Postoperative change can be seen, with removal of portions of the posterior elements inferiorly and placement of bone grafting material. Dictated by: Pro Braswell M.D. on 03/31/2023 at 15:58 Approved by: Pro Braswell M.D. on 03/31/2023 at 16:01
== END ==
PROVIDERS: PCP Family Medicine; Referring Provider Family Medicine; Visit Provider Family Medicine
DX: M47.817 Spondylosis without myelopathy or radiculopathy, lumbosacral region (principal); M47.816 Spondylosis without myelopathy or radiculopathy, lumbar region; M54.50 Low back pain, unspecified
CPT/HCPCS: 72100

== ENCOUNTER → 2023-06-13 18:29 | Outpatient (CLI) | payer OTHER, SELFPAY ==
--- NOTE | 2023-06-13 18:30 | DI.MRI.S_ITS ---
PROCEDURE: MR LUMBAR SPINE WO CON INDICATIONS: SPINAL STENOSIS OF LUMBAR REGION TECHNIQUE: Noncontrast sagittal T1 spin echo and T2 fast echo, sagittal STIR, and T2 fast spin echo through the lumbar spine. In cases with scoliosis, additional coronal T2 fast spin echo may be performed. COMPARISON: [facility], MR, MR LUMBAR SPINE WO CON, 04/23/2021, 10:28. FINDINGS: Image quality: Excellent. Alignment and Curvature: Stable grade 1 anterolisthesis of L5-S1. Bone Marrow: Stable postsurgical changes from L4 through S1 laminectomy. Marrow is of normal overall signal. No acute vertebral body compression fractures. Spinal Cord: Conus medullaris terminates at the L1 level. Visualized cord demonstrates normal signal and size. Paraspinous Soft Tissues: No paravertebral masses. T12-L1: No central canal or neural foraminal stenosis. L1-L2: No central canal or neural foraminal stenosis. L2-L3: Disc desiccation height loss. Diffuse disc bulge. Mild central canal stenosis. No neural foraminal stenosis. Stable exam. L3-L4: Disc desiccation and height loss. Posterior disc bulge. Facet arthropathy. No central canal or neural foraminal stenosis. L4-L5: Facet arthropathy. Laminectomy. No central canal or neural foraminal stenosis. L5-S1: Disc desiccation and height loss. Facet arthropathy. Stable mild central canal stenosis. No neural foraminal stenosis. IMPRESSION: 1. Stable degenerative changes of the lumbar spine status post L4 through S1 laminectomy. 2. Stable mild central canal stenosis at L2-L3 and L5-S1. 3. No significant neural foraminal stenosis. Dictated by: Fransisco Krause M.D. on 06/14/2023 at 8:42 Approved by: Fransisco Krause M.D. on 06/14/2023 at 8:49
== END ==
PROVIDERS: PCP Family Medicine; Referring Provider Orthopaedic Surgery Orthopaedic Surgery of the Spine; Visit Provider Orthopaedic Surgery Orthopaedic Surgery of the Spine
DX: M48.061 Spinal stenosis, lumbar region without neurogenic claudication (principal); M48.07 Spinal stenosis, lumbosacral region; M47.816 Spondylosis without myelopathy or radiculopathy, lumbar region; M47.817 Spondylosis without myelopathy or radiculopathy, lumbosacral region
CPT/HCPCS: 72148

== ENCOUNTER → 2023-07-08 15:24 | Outpatient (CLI) | payer OTHER, SELFPAY ==
--- NOTE | 2023-07-08 | DI.RAD.S_ITS ---
PROCEDURE: XR KNEE LT 3V INDICATIONS: KNEE PAIN TECHNIQUE: 3 views of the knee were acquired. COMPARISON: [facility], [place], XR KNEE 4+ VIEWS LEFT, 07/26/2022, 8:53. [facility], CR, XR KNEE 4+ VIEWS LEFT, 12/27/2022, 9:39. FINDINGS: Bones: No fractures or dislocations. No suspicious bony lesions. Mild tricompartmental osteoarthritis. Soft tissues: No joint effusion. No suspicious soft tissue calcifications. IMPRESSION: 1. No acute bony abnormality or significant effusion. 2. Mild osteoarthritis. Dictated by: Be Gonzalez M.D. on 07/08/2023 at 17:26 Approved by: Be Gonzalez M.D. on 07/08/2023 at 17:28
--- NOTE | 2023-07-08 | DI.RAD.S_ITS ---
PROCEDURE: XR KNEE RT 3V INDICATIONS: KNEE PAIN TECHNIQUE: 3 views of the knee were acquired. COMPARISON: [facility], , KNEE 3V RIGHT, 03/29/2015, 16:59. FINDINGS: Bones: No fractures or dislocations. No suspicious bony lesions. Mild tricompartmental osteoarthritis. Soft tissues: No joint effusion. No suspicious soft tissue calcifications. IMPRESSION: 1. No acute bony abnormality or significant effusion. 2. Mild osteoarthritis. Dictated by: Be Gonzalez M.D. on 07/08/2023 at 17:28 Approved by: Be Gonzalez M.D. on 07/08/2023 at 17:28
== END ==
PROVIDERS: PCP Family Medicine; Referring Provider Family Medicine; Visit Provider Family Medicine
DX: M25.569 Pain in unspecified knee (principal); M17.0 Bilateral primary osteoarthritis of knee
CPT/HCPCS: 73562

== ENCOUNTER → 2023-07-13 10:29 | Outpatient (CLI) | payer OTHER, SELFPAY ==
--- NOTE | 2023-07-13 | DI.CT.S_ITS ---
PROCEDURE: CT LUMBAR SPINE WO CON INDICATIONS: SPINAL STENOSIS TECHNIQUE: Noncontrast 0.8 mm thick sections acquired from the T12 level to the sacrum. Sagittal and coronal reformats were constructed. For radiation dose reduction, the following was used: automated exposure control. COMPARISON: [facility], MR, MR LUMBAR SPINE WO CON, 04/23/2021, 10:28. [facility], MR, MR LUMBAR SPINE WO CON, 04/10/2019, 10:09. [facility], CT, L-SPINE WITHOUT CONTRAST, 07/27/2016, 13:02. [facility], MR, MR LUMBAR SPINE WO CON, 06/13/2023, 18:35. FINDINGS: Image quality: Excellent. Bones: There is accentuated lumbar lordosis. Mild grade 1 anterolisthesis is seen at the L5-S1 level. Associated pars defects are not seen. No acute vertebral body compression fractures. No suspicious lytic or blastic bony lesions. No pars defects. Postoperative changes are seen, with portions of the posterior elements removed at L3-L4, L4-L5, and L5-S1. Bone grafting material is noted. T12-L1: Normal. L1-L2: Normal. L2-L3: Moderate loss of disc height is seen. Moderate disc bulge is seen, with a central disc protrusion. Mild facet joint hypertrophy is seen. No neural foraminal narrowing is seen. Mild to moderate central canal narrowing is seen. These imaging findings have progressed compared to the prior study. L3-L4: Mild loss of disc height is seen. Moderate generalized disc bulge is seen. There is a superimposed central disc protrusion. Moderate facet joint hypertrophy is seen. There is moderate left-sided and mild right-sided neural foraminal narrowing. No central canal narrowing is seen. L4-L5: The disc height is well preserved. Moderate facet joint hypertrophy is seen. No significant neural foraminal narrowing is seen. The central canal is widely patent. When comparison is made with the prior images, these findings are similar. L5-S1: Moderate to severe loss of disc height and disc signal can be seen. Moderate generalized disc bulge is seen. At least moderate facet hypertrophy can be seen. Mild to moderate bilateral neural foraminal narrowing can be seen. Mild central canal narrowing is seen. When comparison is made with the prior images, these findings are similar. Soft tissues: No retroperitoneal masses or hematomas. Visualized aorta is normal in caliber. Atherosclerotic calcification is noted. Colonic diverticulosis is seen, without findings of active diverticulitis. IMPRESSION: Multiple levels of postoperative and degenerative change can be seen. The degenerative changes are similar to 2020, yet mildly progressed at L2-L3. Additional findings: Atherosclerotic calcification Diverticulosis, without active diverticulitis Dictated by: Pro Braswell M.D. on 07/13/2023 at 17:48 Approved by: Pro Braswell M.D. on 07/13/2023 at 17:53
== END ==
PROVIDERS: PCP Family Medicine; Referring Provider Orthopaedic Surgery Orthopaedic Surgery of the Spine; Visit Provider Orthopaedic Surgery Orthopaedic Surgery of the Spine
DX: M48.061 Spinal stenosis, lumbar region without neurogenic claudication (principal); M47.816 Spondylosis without myelopathy or radiculopathy, lumbar region; M47.817 Spondylosis without myelopathy or radiculopathy, lumbosacral region; K57.90 Diverticulosis of intestine, part unspecified, without perforation or abscess without bleeding
CPT/HCPCS: 72131

== ENCOUNTER → 2023-10-04 10:34 | Outpatient (CLI) | payer OTHER, SELFPAY ==
--- NOTE | 2023-10-04 | DI.ECHO.S_ITS ---
[place] +---------+ : : [address] : : : : [id number] : : : : Phone: [phone]+ Echocardiogram Report + + :Name: MARTÍN BRAY Study Date: 10/04/2023 Height: 64 in : :[facility] ReadingLocation: Weight: 205 lb : : Gender: Female BSA: 2.0 m2 : :: 1960 Age: 63 yrs BP: 139/91 mmHg: :Reason For Study: SHORTNESS OF BREATH : :Ordering Physician: ADELINE, : :BONY Garcia Performed By: Kemar Nuno : :Referring: BONY LR : + + Interpretation Summary The study quality was technically difficult. There is mild concentric left ventricular hypertrophy. The ejection fraction is estimated to be 40-45%. Grade I diastolic dysfunction. Grossly the right ventricle appears mildly dilated with mildly reduced function. No obvious valvular abnormalities however limited visualization. Pulmonary artery pressures cannot be estimated because of the lack of a measurable TR jet velocity. Compared to the prior study dated 11/13/2017, the left ventricular function has decreased and is likely that the right ventricular function has also decreased. Procedure: A two-dimensional transthoracic echocardiogram with color flow and Doppler was performed. Comparison is made with the echocardiogram of 11/13/2017. The study quality was technically difficult. The patient was in normal sinus rhythm during the exam. The heart rate ranged between 84-93 bpm during the study. Left Ventricle: The left ventricle is normal in size. There is mild concentric left ventricular hypertrophy. The ejection fraction is estimated to be 40-45%. Diastolic parameters suggest a relaxation abnormality of the left ventricle, consistent with probable normal filling pressures. Right Ventricle: The right ventricle is not well visualized. Grossly the right ventricle appears mildly dilated with mildly reduced function. Right ventricular systolic function is mild to moderately reduced. Atria: The left atrial size is normal. Right atrial size is normal. The interatrial septum grossly appears intact with no obvious evidence for an atrial septal defect. Mitral Valve: The mitral valve is grossly normal. There is no mitral valve stenosis. There is no mitral regurgitation noted. Aortic Valve: The aortic valve opens well. The aortic valve is slightly calcified. There is no aortic valve stenosis. No aortic regurgitation is present. Tricuspid Valve: The tricuspid valve is not well visualized. There is no tricuspid stenosis. There is a trace or physiologic amount of tricuspid regurgitation. Pulmonary artery pressures cannot be estimated because of the lack of a measurable TR jet velocity. Pulmonic Valve: The pulmonic valve is not well visualized. There is no pulmonic valvular stenosis. There is mild pulmonic regurgitation. Great Vessels: The aortic root is normal size. The dimensions of the ascending aorta are normal. The inferior vena cava was not visualized. Pericardium/ Pleura There is no pericardial effusion. There is no pleural effusion. MMode/2D Measurements & Calculations LVIDd: 4.0 cm LVOT diam: 2.4 cm LVIDs: 3.0 cm Ao root diam: 2.8 cm FS: 26.6 % asc Aorta Diam: 3.1 cm IVSd: 1.3 cm Ao Arch Diam (Prox Trans): 2.5 cm LVPWd: 1.1 cm LV love. diameter/BSA (cm/m^2): 2.0 LV sys. diameter/BSA (cm/m^2): 1.5 LA A2 area: 12.5 cm2 RA long axis: 4.0 cm LA A4 area: 13.7 cm2 RA area: 14.1 cm2 LA length (vol): 4.8 cm RA vol: 42.2 ml LA vol: 30.4 ml RA : 21.4 ml/m2 LA vol index: 15.4 ml/m2 RVD1 (basal): 3.4 cm RVD2 (mid): 3.0 cm TAPSE: 1.1 cm Doppler Measurements & Calculations Ao V2 max: 130.2 cm/sec LVOT Max Mario: 81.5 cm/sec Ao V2 mean: 99.3 cm/sec LV V1 max P.7 mmHg Ao max P.8 mmHg LV V1 VTI: 17.5 cm Ao mean P.3 mmHg GRAYSON(I,D): 3.3 cm2 Ao V2 VTI: 23.4 cm GRAYSON(V,D): 2.7 cm2 sev ratio: 0.75 GRAYSON indexed to BSA (cm^2/m^2): 1.7 MV E max mario: 52.3 cm/sec PA V2 max: 114.4 cm/sec MV A max mario: 65.2 cm/sec PA V2 mean: 61.5 cm/sec MV E/A: 0.80 PA mean P.8 mmHg Med Peak E' Mario: 6.2 cm/sec PA pr(Accel): 44.7 mmHg E/E' med: 8.5 Lat Peak E' Mario: 8.5 cm/sec E/E' lat: 6.1 E/e' average: 7.3 MV dec time: 0.22 sec SV([facility]): 76.5 ml Reading Physician:09:33 PM
== END ==
PROVIDERS: PCP Family Medicine; Referring Provider Family Medicine; Visit Provider Family Medicine
DX: I37.1 Nonrheumatic pulmonary valve insufficiency (principal); R06.02 Shortness of breath
CPT/HCPCS: 93306

== ENCOUNTER → 2023-12-30 10:51 | Outpatient (CLI) | payer OTHER, SELFPAY ==
--- NOTE | 2023-12-30 10:54 | DI.RAD.S_ITS ---
PROCEDURE: XR SHOULDER RT MIN 2V INDICATIONS: RT SHOULDER PAIN TECHNIQUE: 3 views of the shoulder were acquired. COMPARISON: None. FINDINGS: Bones: No acute fractures or dislocations. No suspicious bony lesions. Visualized ribs appear intact. Nwda-[id number]-iunvxzda degenerative changes of the acromioclavicular joint. Soft tissues: Calcifications adjacent to the greater tuberosity are suspicious for calcific tendinopathy. IMPRESSION: 1. Suspected distal rotator cuff calcific tendinopathy. 2. Paxu-xc-hauoinvo acromioclavicular joint osteoarthrosis. Approved by: Cristóbal Tobar M.D. on 12/31/2023 at 2:54
== END ==
PROVIDERS: PCP Family Medicine; Referring Provider Family Medicine; Visit Provider Family Medicine
DX: M19.011 Primary osteoarthritis, right shoulder (principal); M25.511 Pain in right shoulder
CPT/HCPCS: 73030

== ENCOUNTER → 2024-04-16 12:10 | Outpatient (CLI) | payer OTHER, SELFPAY ==
--- NOTE | 2024-04-16 12:12 | DI.RAD.S_ITS ---
PROCEDURE: XR HIP W PEL IF DONE RT 2V INDICATIONS: Pain in right hip TECHNIQUE: 2 views of the hip were acquired. COMPARISON: [facility], CR, XR HIP W PEL IF DONE RT 2V, 10/24/2018, 9:54. FINDINGS: Xgyw-kv-ayinnadr degenerative changes bilateral hips with joint space narrowing and small osteophytes mildly progressed. Moderate degenerate changes lower lumbar spine most notably L4-5 and L5-S1 with facet osseous hypertrophic changes mildly progressed. Mild degenerative changes bilateral sacroiliac joints unchanged. No radiographic evidence of fracture, dislocation or high attenuation foreign body. IMPRESSION: Degenerative changes as discussed above mildly progressed. Dictated by: Lavon Andre M.D. on 04/17/2024 at 10:37 Approved by: Lavon Andre M.D. on 04/17/2024 at 10:40
--- NOTE | 2024-04-16 12:12 | DI.RAD.S_ITS ---
PROCEDURE: XR LUMBAR SPINE 3V INDICATIONS: Pain in right hip TECHNIQUE: 3 views of the lumbar spine were acquired. COMPARISON: [facility], CR, XR LUMBAR SPINE 2-3V, 03/31/2023, 11:17. FINDINGS: Laminectomy changes at L4, L5 again noted. Moderate multilevel degenerative changes throughout the lumbar spine with disc space narrowing, osteophytes, facet osseous hypertrophic changes most notably at L5-S1 and to lesser degree L4-5 unchanged. Severe vascular calcifications of the mid and distal aorta into the iliac arteries unchanged. Mild to moderate degenerate changes of the sacroiliac joints and hips unchanged. No radiographic evidence of lumbar spine fracture or subluxation IMPRESSION: No significant change as discussed above with moderate degenerate changes. If symptoms persist or worsen, MRI lumbar spine could be performed. Dictated by: Lavon Andre M.D. on 04/17/2024 at 8:30 Approved by: Lavon Andre M.D. on 04/17/2024 at 8:45
== END ==
LOC: RAD 12:11
PROVIDERS: PCP Family Medicine; Referring Provider Family Medicine; Visit Provider Family Medicine
DX: M47.816 Spondylosis without myelopathy or radiculopathy, lumbar region (principal); M47.817 Spondylosis without myelopathy or radiculopathy, lumbosacral region; M25.551 Pain in right hip; I70.0 Atherosclerosis of aorta
CPT/HCPCS: 72100; 73502

== ENCOUNTER → 2024-05-03 09:34 | Outpatient (CLI) | payer OTHER, SELFPAY ==
--- NOTE | 2024-05-03 09:36 | DI.RAD.S_ITS ---
PROCEDURE: XR CHEST 2V INDICATIONS: Precordial pain TECHNIQUE: 2 views of the chest were acquired. COMPARISON: None. FINDINGS: Surgical changes and devices: None. Lungs and pleura: Lungs are clear. No pleural effusions or pneumothorax. Mediastinum: Mediastinal contours are normal. Heart size is normal. Bones and chest wall: No suspicious bony abnormalities. Soft tissues appear unremarkable. IMPRESSION: No acute cardiopulmonary abnormality is seen. Dictated by: Ha Goff M.D. on 05/04/2024 at 10:26 Approved by: Ha Goff M.D. on 05/04/2024 at 10:26
== END ==
PROVIDERS: PCP Family Medicine; Referring Provider Internal Medicine Cardiovascular Disease; Visit Provider Internal Medicine Cardiovascular Disease
DX: I42.9 Cardiomyopathy, unspecified (principal); R07.2 Precordial pain; R00.2 Palpitations
CPT/HCPCS: 71046

== ENCOUNTER → 2024-07-28 13:30 | Outpatient (CLI) | payer OTHER, SELFPAY ==
--- NOTE | 2024-07-28 13:31 | DI.MG.S_ITS ---
BILATERAL DIGITAL DIAGNOSTIC MAMMOGRAM 3D/2D SHORT-TERM FOLLOW-UP: 07/28/2024 CLINICAL: Short term follow up of the right breast, due for bilateral imaging. Comparison is made to exams dated: 01/16/2023 mammogram, 07/25/2022 mammogram, 01/20/2022 mammogram, and 12/02/2021 mammogram - [facility]. There are scattered areas of fibroglandular density (category b / 25%-50% glandular tissue). The irregular asymmetry in the right breast middle depth central to the nipple seen on the craniocaudal view only has not significantly changed. Mammograms are otherwise stable. No other significant masses, calcifications, or other findings are seen in either breast. IMPRESSION: BENIGN Bilateral mammograms are stable. The asymmetry in the right breast is consistent with fibroglandular tissue and is benign. There is no mammographic evidence of malignancy. Return to annual mammogram screening schedule is recommended. Findings and recommendations were conveyed to the patient at time of exam. Based on the Tyrer Cuzick model (a risk assessment model) the patient's lifetime risk is 6.0% and her 10 year risk is 2.7%. According to the ACR, ACS, and NCCN guidelines, an annual breast MRI exam along with mammogram is recommended if the patient's lifetime risk is 20% or greater. This exam was interpreted at Station ID: [id number]. NOTE: For mammograms, a report in lay terms will be sent to the patient. Approximately 15% of breast malignancies will not be visualized mammographically. In the management of a palpable breast mass, a negative mammogram must not discourage biopsy of a clinically suspicious lesion. Electronically Signed By: Cathy pederson/:07/28/2024 13:56:14 letter sent: Normal Exam ACR BI-RADS Category 2: Benign
== END ==
PROVIDERS: PCP Family Medicine; Referring Provider Family Medicine; Visit Provider Family Medicine
DX: R92.8 Other abnormal and inconclusive findings on diagnostic imaging of breast (principal); N64.89 Other specified disorders of breast
CPT/HCPCS: 77066; G0279

== ENCOUNTER 2024-08-17 11:50 | Emergency (ER) | payer OTHER, SELFPAY ==
[2024-08-17 11:56] VITALS: BP 129/68; PULSE 81; RESP 16; TEMP 36.7; O2SAT 98; BMI 33.5
--- NOTE | 2024-08-17 12:29 | ED_ITS ---
HPI - Back Pain/Injury <Loretta Jacinto PA-C - Last Filed: 08/17/24 13:44> General Chief Complaint: Back Pain/Injury Stated Complaint: Back pain Time Seen by Provider: 08/17/24 12:18 Source: patient History of Present Illness HPI Narrative: Ms. Patricio is a very pleasant 64-year-old female with a past medical history of klq-[id number]-sgnsujoml type 2 diabetes, GERD, hypertension, hyperlipidemia, chronic back pain who presents to the emergency department for acute on chronic back pain times ?a few weeks?. Patient states she has had back pain since she was in her 20s when she had surgery. States that however in June she was taking care of a sick family member and was often having to help lift them. States that over the last few weeks her low back pain has gotten worse and is also spreading into the right glute and occasionally down the right leg. She is occasionally having spasms of the right lumbar muscles. She saw her PCP last week who ordered an outpatient MRI which she has not had done yet. States that she has been using Voltaren, lidocaine patches, ibuprofen without resolution of the pain. She describes some tingling sensation in the back of the right thigh but otherwise no numbness or weakness of the legs. No bowel or bladder dysfunction. No fevers, chills, chest pain, shortness of breath, abdominal pain, nausea, vomiting. Denies dysuria or hematuria. She is a middle school english teacher. Related Data Home Medications Medication Instructions Recorded Confirmed atorvastatin 40 mg tablet 40 mg PO HS ##0 10/29/17 10/06/20 metoprolol tartrate 25 mg tablet 25 mg PO QDAY ##0 10/29/17 10/06/20 esomeprazole magnesium 40 mg 40 mg PO DAILY 11/08/18 10/06/20 capsule,delayed release cholecalciferol (vitamin D3) 50 50 mcg PO DAILY 02/26/20 10/06/20 mcg (2,000 unit) tablet Previous Rx's Medication Instructions Recorded acetaminophen 500 mg capsule 1,000 mg (2 x 500 mg) PO Q8H PRN 08/17/24 pain #30 caps cyclobenzaprine 5 mg tablet 5 mg PO BEDTIME PRN muscle spasm 08/17/24 #20 tabs naproxen 375 mg tablet 375 mg PO BID PRN pain #20 tabs 08/17/24 Allergies Allergy/AdvReac Type Severity Reaction Status Date / Time No Known Drug Allergies Allergy Verified 10/06/20 08:39 Review of Systems <Loretta Jacinto PA-C - Last Filed: 08/17/24 13:44> Review of Systems ROS Unobtainable: All systems reviewed & are unremarkable except as noted in HPI and below Patient History <Loretta Jacinto PA-C - Last Filed: 08/17/24 13:44> Medical History Postmenopausal bleeding Lipid disorder Hypertension Surgical History History of section Status post laminectomy Family History Father Diabetes mellitus Heart disease Stroke Sister Diabetes mellitus Kidney failure Social History Smoking Status: Former smoker Smoking Status: Former smoker Exam <Loretta Jacinto PA-C - Last Filed: 08/17/24 13:44> Narrative Exam Narrative: GENERAL: 64 year old patient appears stated age. Well-developed patient, in no acute distress. HEAD: Atraumatic. Normocephalic. NECK: Trachea midline. Cervical ROM intact. CARDIOVASCULAR: Regular rate and rhythm. RESPIRATORY: ?Nonlabored respirations. ?Speaking in clear, full sentences. ?Clear to auscultation. Breath sounds equal bilaterally. No wheezes, rales, or rhonchi. ? EXTREMITIES: No edema or joint tenderness. Full range of motion. Steady gait. BACK: Tenderness to palpation of right paralumbar spinal muscle region and right SI joint region. 5/5 strength of bilateral lower extremities, sensation intact to light touch throughout the lower extremities. No midline spinal tenderness or deformities. Midline lumbar surgical scar. NEURO: AOx3. ?Clear speech. ?Moves all 4 extremities appropriately. SKIN: No rash or erythema of visible areas Initial Vital Signs Initial Vital Signs: Vital Signs Temperature 98.0 F 08/17/24 11:56 Pulse Rate 81 08/17/24 11:56 Respiratory Rate 16 08/17/24 11:56 Blood Pressure 129/68 08/17/24 11:56 Pulse Oximetry 98 08/17/24 11:56 Oxygen Delivery Method Room Air 08/17/24 11:56 <Mecca Quinteros DO - Last Filed: 08/18/24 08:19> Initial Vital Signs Initial Vital Signs: Vital Signs Temperature 98.0 F 08/17/24 11:56 Pulse Rate 81 08/17/24 11:56 Respiratory Rate 16 08/17/24 11:56 Blood Pressure 129/68 08/17/24 11:56 Pulse Oximetry 98 08/17/24 11:56 Oxygen Delivery Method Room Air 08/17/24 11:56 Course <Loretta Jacinto PA-C - Last Filed: 08/17/24 13:44> Orders Ordered: Discontinued Medications Acetaminophen (Acetaminophen 650 Mg Supp) 650 mg RI NOW ONE Stop: 08/17/24 13:06 Last Admin: 08/17/24 13:20 Dose: Not Given Documented By: ZHEN Acetaminophen (Acetaminophen 325 Mg Tablet) 650 mg PO NOW ONE Stop: 08/17/24 13:18 Last Admin: 08/17/24 13:21 Dose: 650 mg Documented By: KORIN Hydrocodone Bitart/Acetaminophen (Hydrocodone/Acet 5/325 Tablet) 1 tab PO NOW ONE Stop: 08/17/24 13:06 Last Admin: 08/17/24 13:15 Dose: 1 tab Documented By: KORIN Ketorolac Tromethamine (Ketorolac 30 Mg/Ml Vial) 30 mg IM NOW ONE Stop: 08/17/24 13:06 Last Admin: 08/17/24 13:14 Dose: 30 mg Documented By: KORIN Vital Signs Vital signs: Vital Signs - 8 hr 08/17/24 11:56 Temperature 98.0 F Pulse Rate 81 Respiratory Rate 16 Blood Pressure 129/68 Pulse Oximetry 98 Oxygen Delivery Method Room Air <Mecca Quinteros DO - Last Filed: 08/18/24 08:19> Orders Ordered: Discontinued Medications Acetaminophen (Acetaminophen 650 Mg Supp) 650 mg RI NOW ONE Stop: 08/17/24 13:06 Last Admin: 08/17/24 13:20 Dose: Not Given Documented By: ZHEN Acetaminophen (Acetaminophen 325 Mg Tablet) 650 mg PO NOW ONE Stop: 08/17/24 13:18 Last Admin: 08/17/24 13:21 Dose: 650 mg Documented By: KORIN Hydrocodone Bitart/Acetaminophen (Hydrocodone/Acet 5/325 Tablet) 1 tab PO NOW ONE Stop: 08/17/24 13:06 Last Admin: 08/17/24 13:15 Dose: 1 tab Documented By: KORIN Ketorolac Tromethamine (Ketorolac 30 Mg/Ml Vial) 30 mg IM NOW ONE Stop: 08/17/24 13:06 Last Admin: 08/17/24 13:14 Dose: 30 mg Documented By: KORIN Vital Signs Vital signs: Vital Signs - 8 hr 08/17/24 11:56 Temperature 98.0 F Pulse Rate 81 Respiratory Rate 16 Blood Pressure 129/68 Pulse Oximetry 98 Oxygen Delivery Method Room Air MDM - Back Pain/Injury <Loretta Jacinto PA-C - Last Filed: 08/17/24 13:44> Lab Data Labs: Lab Results 08/17/24 Range/Units 12:17 Ur Bilirubin Confirm Negative (Negative) Urine RBC None seen (0-5/HPF) Urine WBC None seen (0-5/HPF) Ur Squamous Epith Cells 0-1 /hpf (0-5/HPF) Urine Bacteria Few (2-10) H (None) Ur Culture Indicated? Cult not indicated Vol Urine Centrifuged 10ml (spun) Urine Dip Bedside Urine Glucose Negative Bedside Urine Bilirubin + 1 Bedside Urine Ketone +/- 5 Urine Specific Sherrard 1.030 Bedside Urine Occult Blood - Negative Bedside Urine pH 6.0 Bedside Urine Protein - Negative Bedside Urine Urobilinogen - Negative Bedside Urine Nitrite - Negative Bedside Urine Leukocytes +/- 15 Esterase MDM Narrative Medical decision making narrative: 64-year-old female with a past medical history of ung-zihyeca-[id number] type 2 diabetes, GERD, hypertension, hyperlipidemia, chronic back pain who presents to the emergency department for acute on chronic back pain times ?a few weeks?. Differential diagnosis includes acute on chronic pain, paralumbar muscle spasm, herniated disc, spinal stenosis, lumbar degenerative disc disease, UTI, etc. On exam the patient is in no acute distress, nontoxic appearing, vital signs all within normal limits, great range of motion of her lower extremities and steady gait. No bowel or bladder dysfunction. No fevers. UA negative for infection or blood. Some tenderness to palpation of right paralumbar spinal region and right SI joint region. Suspect chronic back pain was exacerbated by recent heavy lifting, outpatient MRI ordered, we will check UA to rule out cystitis and treat with 1 time dose of hydrocodone, full-dose acetaminophen, IM ketorolac. We will send patient prescription of acetaminophen, naproxen, cyclobenzaprine. Discussed risks of muscle relaxers. Also recommended patient use warm compresses, lidocaine patches, gentle stretching, follow up with PCP. We discussed red flags return to the ED for. Patient verbalized understanding of all information and is stable for discharge home. She has a ride home. <Mecca Aldair, DO - Last Filed: 08/18/24 08:19> Lab Data Labs: Lab Results 08/17/24 Range/Units 12:17 Ur Bilirubin Confirm Negative (Negative) Urine RBC None seen (0-5/HPF) Urine WBC None seen (0-5/HPF) Ur Squamous Epith Cells 0-1 /hpf (0-5/HPF) Urine Bacteria Few (2-10) H (None) Ur Culture Indicated? Cult not indicated Vol Urine Centrifuged 10ml (spun) Urine Dip Bedside Urine Glucose Negative Bedside Urine Bilirubin + 1 Bedside Urine Ketone +/- 5 Urine Specific Sherrard 1.030 Bedside Urine Occult Blood - Negative Bedside Urine pH 6.0 Bedside Urine Protein - Negative Bedside Urine Urobilinogen - Negative Bedside Urine Nitrite - Negative Bedside Urine Leukocytes +/- 15 Esterase Discharge Plan Departure Patient Disposition: Home Clinical Impression: Acute right lumbar radiculopathy, Lumbar paraspinal muscle spasm Instructions: DI for Back Spasm Activity Restrictions/Additional Instructions: Today you were evaluated for right-sided low back pain radiating down the leg. You were treated with an injection of ketorolac, oral hydrocodone and oral acetaminophen. I have sent prescriptions for naproxen, acetaminophen and cyclobenzaprine to your pharmacy. Cyclobenzaprine as a muscle relaxer which you should not take if driving a car or operating heavy machinery as it can make you drowsy. Please only take this medication at night to help with muscle spasms. In addition to the prescribed medications, please use topical lidocaine patches, Voltaren cream or warm compresses to help with your pain and muscle spasm. Please call your primary care doctor's office to make sure that the outpatient MRI has been ordered and follow up with your primary care doctor. Return to the emergency room if you develop any new or worsening symptoms, inability to walk, weakness of the leg, inability to go to the bathroom or losing control of your bowel or bladder, or any other concerns. Please follow up with your primary care doctor within the next 2-3 days for ER follow-up. (If you do not have a PCP you can call [phone]. ?to schedule an appointment with an [facility] Primary Care Provider) IF YOU DEVELOP ANY NEW OR WORSENING SYMPTOMS, RETURN TO THE ER! Please read the attached instructions, they highlight more specific treatments and interventions for you at home. Thank you for letting me participate in your care, Loretta Jacinto PA-C Prescriptions: New naproxen 375 mg tablet 375 mg PO BID PRN (Reason: pain) Qty: 20 0RF Rx Instructions: take with food. acetaminophen 500 mg capsule 1,000 mg PO Q8H PRN (Reason: pain) Qty: 30 0RF cyclobenzaprine 5 mg tablet 5 mg PO BEDTIME PRN (Reason: muscle spasm) Qty: 20 0RF Rx Instructions: Can take maximum of 10mg (2 tabs) if needed at bedtime. No Action atorvastatin 40 MG tablet 40 mg PO HS Qty: 0 metoprolol tartrate 25 MG tablet 25 mg PO QDAY Qty: 0 esomeprazole magnesium 40 mg capsule,delayed release(DR/EC) 40 mg PO DAILY cholecalciferol (vitamin D3) 50 mcg (2,000 unit) tablet 50 mcg PO DAILY Referrals: Leon Garner MD [Primary Care Provider] - Stand Alone Forms: Patient Portal/API/Survey ED Sign-out <Mecca Quinteros DO - Last Filed: 08/18/24 08:19> Cosign ED Attending Hortencia Attestation: I was available for consultation.
[2024-08-17 12:40] LABS: Ictotest Urine Negative (Negative)
[2024-08-17 12:52] LABS: Bacteria Urine Few (2-10); Culture Indicated Urine Cult Not Indicated; RBC Urine None Seen (0-5/HPF); Squamous Epithelial Cell Urine 0-1 /HPF (0-5/HPF); Urine Volume 10mL (spun); WBC Urine None Seen (0-5/HPF)
[2024-08-17] MEDS: KETOROLAC 30 MG/ML VIAL IM (13:14)
[2024-08-17] MEDS: HYDROCODONE/ACET 5/325 TABLET 1 TAB PO (13:15)
[2024-08-17] MEDS: ACETAMINOPHEN 325 MG TABLET 650 MG PO (13:21)
[2024-08-17 13:51] VITALS: BP 120/64; PULSE 78; RESP 14; O2SAT 98
== END 2024-08-17 13:52 | disposition home or self-care (01) ==
PROVIDERS: Emergency Provider Physician Assistant; PCP Family Medicine; Referring Provider Family Medicine
DX: M54.16 Radiculopathy, lumbar region (principal); M62.830 Muscle spasm of back
CPT/HCPCS: 81003; 81015; 96372; 99283; J1885

== ENCOUNTER → 2024-10-03 11:22 | Outpatient (CLI) | payer OTHER, SELFPAY ==
--- NOTE | 2024-10-03 11:24 | DI.US.S_ITS ---
PROCEDURE: US ABDOMEN COMPLETE INDICATIONS: ACUTE GASTRITIS TECHNIQUE: Real-time scanning was performed of the abdominal and retroperitoneal organs, with image documentation. COMPARISON: [facility], US, ABDOMEN LIMITED, 07/27/2016, 12:59. FINDINGS: Liver: Increased liver echogenicity with posterior attenuation, most consistent with moderate to severe steatosis. Gallbladder: Normal Biliary ducts: Intrahepatic bile ducts are non-dilated. Extrahepatic bile duct caliber measures 6 mm. Normal is 6-7 mm or less in diameter, or 10 mm or less post-cholecystectomy. Pancreas: Visualized portions of the pancreas are sonographically normal. Spleen: Spleen is normal in size and homogeneous in echotexture. Kidneys: Kidneys are normal in size and echotexture. Right kidney measures 11.4 cm long; left kidney measures 10.3 cm long. No hydronephrosis or nephrolithiasis. No solid masses. Aorta: Visualized aorta is normal in caliber at less than 3 cm. Iliacs: Proximal common iliac arteries are normal in caliber at less than 2.5 cm. IVC: Intrahepatic inferior vena cava is patent. Miscellaneous: No free abdominal fluid. IMPRESSION: Severe hepatic steatosis. In the absence of alcohol use or other confounding factors, elevated LFTs may indicate bbmdckgoh-fzlhsgerbeh-jfjwrlymte steatohepatitis (MASH). Dictated by: Ha Goff M.D. on 10/03/2024 at 16:37 Approved by: Ha Goff M.D. on 10/03/2024 at 16:39
== END ==
PROVIDERS: PCP Family Medicine; Referring Provider Family Medicine; Visit Provider Family Medicine
DX: K29.00 Acute gastritis without bleeding (principal); M54.50 Low back pain, unspecified; K76.0 Fatty (change of) liver, not elsewhere classified
CPT/HCPCS: 76700

== ENCOUNTER → 2024-12-07 09:39 | Outpatient (CLI) | payer OTHER, SELFPAY ==
--- NOTE | 2024-12-07 09:41 | DI.MRI.S_ITS ---
PROCEDURE: MR SHOULDER RT WO CON INDICATIONS: RT SHOULDER PAIN TECHNIQUE: Noncontrast oblique coronal T2 fast spin echo with fat saturation, oblique sagittal T1 spin echo and T2 fast spin echo with fat saturation, axial T1 spin echo and T2 fast spin echo with fat saturation through the shoulder. COMPARISON: [facility] [place], CR, XR SHOULDER 2+ VIEWS RIGHT, 12/01/2024, 12:16. FINDINGS: Image quality: Excellent. Rotator cuff: Low to moderate grade bursal surface partial thickness tear involving distal supraspinatus at its insertion on the humeral head is seen extending to musculotendinous junction. Distal infraspinatus tendinosis is seen. Distal subscapularis tendinosis is also seen. No full-thickness rotator cuff tendon rupture. Sagittal images demonstrate mild supraspinatus muscle atrophy. Bones and bursae: No bone marrow contusions or fractures. Yceo-sd-muqhafbj acromioclavicular joint osteoarthritic changes are seen with joint space narrowing and downward osteophyte formation depressing the musculotendinous junction of supraspinatus. Type 2 acromion without an os acromiale. Small amount of joint effusion and subacromial subdeltoid bursal fluid, no loose bodies. Capsule and soft tissues: Signal abnormality and fraying involving superior anterior glenoid labrum is seen extending from 12-2 o'clock position. Proximal intra-articular portion of long head of biceps tendinosis is seen. IMPRESSION: 1. Low to moderate grade bursal surface partial thickness tear involving distal supraspinatus extending to musculotendinous junction. Distal infraspinatus and subscapularis tendinosis. No full-thickness rotator cuff tendon rupture. Mild supraspinatus muscle atrophy. 2. Digk-zi-ixohwmpn acromioclavicular joint osteoarthritis. No fracture or dislocation. Small amount of joint effusion and subacromial subdeltoid bursal fluid, no loose bodies. 3. Suggestion of superior anterior glenoid labral tear at 12 to 2 o'clock position. 4. Proximal intra-articular portion of long head of biceps tendinosis. Dictated by: Mark Escobedo M.D. on 12/08/2024 at 22:17 Approved by: Mark Escobedo M.D. on 12/08/2024 at 22:19
== END ==
PROVIDERS: PCP Family Medicine; Referring Provider Family Medicine; Visit Provider Orthopaedic Surgery
DX: M75.111 Incomplete rotator cuff tear or rupture of right shoulder, not specified as traumatic (principal); M19.011 Primary osteoarthritis, right shoulder; M25.511 Pain in right shoulder; M25.411 Effusion, right shoulder
CPT/HCPCS: 73221

== ENCOUNTER → 2024-12-27 10:04 | Outpatient (CLI) | payer OTHER, SELFPAY ==
--- NOTE | 2024-12-27 10:05 | DI.MRI.S_ITS ---
PROCEDURE: MR ANKLE LT WO CON INDICATIONS: LT ANKLE PAIN TECHNIQUE: Noncontrast sagittal T1 spin echo and T2 fast spin echo with fat saturation, axial proton density fast spin echo and T2 fast spin echo with fat saturation, coronal T1 spin echo and T2 fast spin echo with fat saturation through the ankle/hindfoot. COMPARISON: None. FINDINGS: Image quality: Excellent. Bones and joints: No acute trabecular bone injury or fracture. No hindfoot coalitions. No osteochondral injuries of the talar dome. Medial structures: The deltoid ligament and the spring ligament complex are intact. The posterior tibialis, flexor digitorum longus, and flexor hallucis longus tendons are intact. The posterior tibial neurovascular bundle appears normal within the tarsal tunnel, without extrinsic mass effect. Lateral structures: There is chronic complete tearing of the anterior talofibular ligament. Remote prior low-grade sprains of the calcaneofibular ligament and posterior talofibular ligament. The anterior and posterior tibiofibular ligaments are intact. Peroneus brevis and longus tendons demonstrate normal location and morphology. Mild partial effacement of the fat signal in the sinus tarsi with a long tubular ganglion cyst along the posterior margin measuring up to 20 x 9 x 21 mm. Anterior structures: The tibialis anterior, extensor hallucis longus, and extensor digitorum longus tendons appear intact. Posterior and plantar structures: Mild Achilles tendinosis. Mildly increased signal is seen at the distal insertion. Small nonedematous calcaneal enthesophytes are present.. The proximal plantar fascia is thickened without surrounding edema. No abductor digiti minimi muscle atrophy to suggest Galvez neuropathy. IMPRESSION: 1. Chronic complete tearing of the anterior talofibular ligament. Remote prior low-grade sprains of the calcaneofibular ligament and posterior talofibular ligament. 2. Lobular ganglion cyst is seen within the sinus tarsi and extending superiorly from the lateral margin measuring up to 21 mm in maximum dimension. 3. Mild chronic proximal plantar fasciitis. 4. Mild Achilles tendinosis. Approved by: Cristóbal Tobar M.D. on 12/29/2024 at 9:42
== END ==
PROVIDERS: PCP Family Medicine; Referring Provider Family Medicine; Visit Provider Podiatrist
DX: S93.492A Sprain of other ligament of left ankle, initial encounter (principal); S93.412A Sprain of calcaneofibular ligament of left ankle, initial encounter; M76.62 Achilles tendinitis, left leg; M67.472 Ganglion, left ankle and foot; M72.2 Plantar fascial fibromatosis; M25.572 Pain in left ankle and joints of left foot; X58.XXXA Exposure to other specified factors, initial encounter
CPT/HCPCS: 73721

== ENCOUNTER → 2025-05-16 09:43 | Outpatient (CLI) | payer OTHER, SELFPAY ==
--- NOTE | 2025-05-16 10:42 | DI.MRI.S_ITS ---
PROCEDURE: MR LUMBAR SPINE WO CON INDICATIONS: SCIATICA TECHNIQUE: Noncontrast sagittal T1 spin echo and T2 fast echo, sagittal STIR, and T2 fast spin echo through the lumbar spine. In cases with scoliosis, additional coronal T2 fast spin echo may be performed. COMPARISON: [facility], CR, XR LUMBAR SPINE 2-3V, 04/16/2024, 12:21. [facility], MR, MR LUMBAR SPINE WO CON, 06/13/2023, 18:35. FINDINGS: Image quality: Excellent. Alignment and Curvature: 5 lumbar type vertebral bodies are present by plain film. 3 mm of retrolisthesis of L2 on L3. 6 mm of anterolisthesis of L5 on S1. Bone Marrow: Marrow is of normal overall signal. No acute vertebral body compression fractures. Spinal Cord: Conus medullaris terminates at the L1 level. Visualized cord demonstrates normal signal and size. Paraspinous Soft Tissues: No paravertebral masses. T12-L1: Normal appearance. L1-L2: Normal appearance. L2-L3: Mild disc desiccation and diffuse disc bulge. Mild facet and ligamentum flavum hypertrophy. Mild epidural lipomatosis. Mild canal stenosis. No foraminal stenosis. No significant change. L3-L4: Moderate disc desiccation. Mild disc height loss and diffuse disc bulge with superimposed right paracentral protrusion. Mild bilateral facet hypertrophy. Mild canal stenosis. Mild bilateral foraminal stenosis. No significant change. L4-L5: Mild disc desiccation. Mild diffuse disc bulge/osteophyte. Mild bilateral facet hypertrophy. Mild canal stenosis. Mild bilateral foraminal stenosis. No significant change. L5-S1: Moderate disc height loss and desiccation. Mild bilateral facet hypertrophy. Mild canal stenosis. Mild bilateral foraminal stenosis. No significant change. IMPRESSION: 1. Multilevel degenerative disc and facet disease, as well as ligamentum flavum hypertrophy and epidural lipomatosis. 2. Mild multilevel canal and foraminal stenoses . No neural impingement. Dictated by: Bessy Aponte M.D. on 05/18/2025 at 12:21 Approved by: Bessy Aponte M.D. on 05/18/2025 at 12:25
== END ==
LOC: MRI 09:44
PROVIDERS: PCP Family Medicine; Referring Provider Family Medicine; Visit Provider Family Medicine
DX: M54.31 Sciatica, right side (principal); M51.369 Other intervertebral disc degeneration, lumbar region without mention of lumbar back pain or lower extremity pain; M48.061 Spinal stenosis, lumbar region without neurogenic claudication; M47.816 Spondylosis without myelopathy or radiculopathy, lumbar region; M46.06 Spinal enthesopathy, lumbar region; E88.2 Lipomatosis, not elsewhere classified; M47.817 Spondylosis without myelopathy or radiculopathy, lumbosacral region; M48.07 Spinal stenosis, lumbosacral region
CPT/HCPCS: 72148

== ENCOUNTER → 2025-06-26 06:38 | Outpatient (CLI) | payer OTHER, SELFPAY ==
--- NOTE | 2025-06-26 06:40 | DI.US.S_ITS ---
PROCEDURE: US ABDOMEN LIMITED INDICATIONS: epigastric pain, ?cholecystitis TECHNIQUE: Real-time scanning was performed of the abdominal and retroperitoneal organs, with image documentation. COMPARISON: [facility], US, US ABDOMEN COMPLETE, 10/03/2024, 12:19. FINDINGS: Liver: The liver is diffusely increased in echogenicity. No focal sonographic lesion is identified. Gallbladder: No gallstones. No wall thickening. No pericholecystic edema. Negative sonographic Root's sign. Biliary ducts: Intrahepatic bile ducts are non-dilated. Extrahepatic bile duct caliber measures 9 mm. Normal is 6-7 mm or less in diameter, or 10 mm or less post-cholecystectomy. Pancreas: Visualized portions of the pancreas are sonographically normal. Miscellaneous: No free abdominal fluid. IMPRESSION: 1. Dilated common bile duct without visualized choledocholithiasis. Recommend correlation with biliary studies and MRI of the abdomen (MRCP) for further evaluation. 2. No sonographic cholecystitis. 3. Diffusely increased right hepatic echogenicity, concerning for hepatocellular dysfunction such as hepatic steatosis. Dictated by: Srinivas Morgan M.D. on 06/26/2025 at 8:16 Approved by: Srinivas Morgan M.D. on 06/26/2025 at 8:19
== END ==
LOC: US 06:39
PROVIDERS: PCP Family Medicine; Referring Provider Surgery; Visit Provider Surgery
DX: K83.8 Other specified diseases of biliary tract (principal); R10.13 Epigastric pain
CPT/HCPCS: 76705

== ENCOUNTER → 2025-07-04 14:13 | Outpatient (CLI) | payer OTHER, SELFPAY ==
--- NOTE | 2025-07-04 14:15 | DI.MRI.S_ITS ---
PROCEDURE: MR AB PANCREATIC/MRCP PROTOCOL INDICATIONS: Dilated common bile duct TECHNIQUE: Coronal HASTE through the abdomen, axial 2-D FLASH in- and [id number], and breath-hold T2 FSE with fat saturation through the biliary system and pancreas. Oblique coronal and axial thin-slice HASTE, radial thick-slab HASTE centered on the extrahepatic bile ducts. COMPARISON: [facility], , [place] ABDOMEN LIMITED, 06/26/2025, 6:58. FINDINGS: Image quality: Diagnostic Lower chest: Unremarkable Liver: Mild steatosis. No focal lesion identified Gallbladder and biliary system: Unremarkable gallbladder. Mildly dilated mid CBD measuring 9 mm. No discrete stone is seen on today's imaging. No obstructing lesion is identified Pancreas: No ductal dilation. No discrete mass lesion Spleen: Nonenlarged Adrenals: No discrete nodules Kidneys: No solid mass or hydronephrosis. Vessels and lymph nodes: No abdominal aortic aneurysm. The main portal vein is patent. No lymph nodes enlarged by size criteria. Bowel and peritoneum: No bowel obstruction. Colonic diverticulosis. No ascites or drainable abscess Body wall: Unremarkable Bones: No aggressive appearing osseous abnormality IMPRESSION: Mildly dilated CBD again seen. No discrete stone or mass lesion identified on MRI. ERCP could further evaluate if necessary, depending on clinical context and LFT pattern Dictated by: Enoc Sharif M.D. on 07/05/2025 at 17:00 Approved by: Enoc Sharif M.D. on 07/05/2025 at 17:04
== END ==
LOC: MRI 14:14
PROVIDERS: PCP Family Medicine; Referring Provider Family Medicine; Visit Provider Surgery
DX: K83.8 Other specified diseases of biliary tract (principal); K76.0 Fatty (change of) liver, not elsewhere classified; K57.90 Diverticulosis of intestine, part unspecified, without perforation or abscess without bleeding
CPT/HCPCS: 74183; A9579